=== PATIENT | male | born 1955 | race Caucasian/White ===

== ENCOUNTER 2024-09-27 10:55 | Inpatient (IN) | payer MEDICARE, OTHER, SELFPAY ==
[2024-09-27] VITALS (26 sets, daily range): BP systolic 106–189; BP diastolic 64–115; BMI 24.9
--- NOTE | 2024-09-27 08:50 | ED.GENMED ---
History of Present Illness
General
Chief Complaint: Chest Pain
Source: patient and spouse
Exam Limitations: none
Time Seen by Provider: 09/27/24 08:40
Nursing documentation reviewed up to this point in time: agreed with
History of Present Illness
History of Present Illness:
Late entry seen immediately upon presentation
69-year-old male limited past medical history chest pain about 30 minutes prior to arrival earlier in the morning was doing some heavy lifting pain to pressure across his chest and his left arm not to his jaw or back no nausea or vomiting no leg
edema does not drink or smoke does have a strong family history of heart disease
Past History
Past History
ED Past Surgical History: Appendectomy and Urological
Social History
Tobacco: Non-smoker
Alcohol: None
Drug: None
Personal:
Living: with family
Employment: Employed
Family History
Family History: CAD
Review of Systems
Review of Systems
All Other Systems: Not applicable
Constitutional: Denies fever
EENT: Reports no symptoms
Respiratory: Reports trouble breathing; Denies cough
Cardiac: Reports chest pain; Denies diaphoresis, palpitations or syncope
ABD/GI: Reports no symptoms; Denies nausea or vomiting
: Reports no symptoms
Musculoskeletal: Reports no symptoms
Phy Exam
Physical Exam
Physical Exam:
Physical Exam
General: 69 male mild distress
Neck: No jaundice
Heart: s1/s2 regular rate and rhythm, no murmur. equal radial pulses.
Lungs: no acute respiratory distress. clear bilaterally
Abdomen: Nontender
Neuro: alert and oriented. no focal neurological deficits
Skin: no rash
Psychiatric: well kept. interactive and cooperative
Extremities: no edema.
Scores
Heart Score for Chest Pain Patients
STEMI patient?: No
History: Moderately Suspicious
ECG: Normal
Age: >/= 65 years
Risk Factors: 1 or 2 Risk Factors
Troponin: </= Normal Limit
Heart Score for Chest Pain Patients: 4
Heart Score Risk: 20.3% MACE over next 6 weeks
Course
Orders/Labs/Results
Orders:
Orders
09/27/24 08:33
Amiodarone [Cordarone] 150 mg .ROUTE .STK-MED ONE
Atropine Sulfate [Atropine 0.1 mg/ml Syringe] 2 mg .ROUTE .STK-MED ONE
Calcium CHLORIDE [Calcium Chloride 10% Syringe] 2,000 mg .ROUTE .STK-MED ONE
EPINEPHrine [Adrenalin 1 mg/10 ml] 2 mg .ROUTE .STK-MED ONE
Lidocaine HCl/Pf [Xylocaine] 50 mg .ROUTE .STK-MED ONE
Sodium Bicarbonate 50 meq .ROUTE .STK-MED ONE
09/27/24 08:34
ECG [Electrocardiogram (*1)] Urgent
Reason for Study: Chest Pain
EKG- Treatment ONCE
09/27/24 08:40
Cardiac Monitoring- Treatment ONCE
IV Insert/Care/Rem.- Treatment PRN
O2 Therapy [RESP] Urgent
Titrate/Wean O2 to maintain O2 sat greater than (%): 90
Special Instructions: Maintain sats >/=90%
Pulse Ox/spot Check [RESP] Urgent
Quantity: 1
Special Instructions: ON ROOM AIR
09/27/24 08:47
Aspirin 325 mg PO NOW STA
Nitroglycerin Sublingual [Nitrostat (Sublingual)] 0.4 mg SL [id number] PRN
09/27/24 08:50
Complete Blood Count/With Diff Urgent
Comprehensive Metabolic Panel Urgent
Troponin I Urgent
09/27/24 08:54
EKG [Electrocardiogram (*1)] Stat
Reason for Study: Chest Pain
EKG- Treatment ONCE
09/27/24 08:59
Ondansetron Injectable [Zofran] 4 mg .ROUTE .STK-MED ONE
09/27/24 09:02
PTT Stat
09/27/24 09:15
Aspirin Chewable [Low Strength Aspirin] 324 mg .ROUTE .STK-MED ONE
Heparin 5,000 units .ROUTE .STK-MED ONE
Ticagrelor [Brilinta] 180 mg .ROUTE .STK-MED ONE
09/27/24 09:23
Midazolam HCl [Versed] 2 mg .ROUTE .STK-MED ONE
09/27/24 09:25
Amiodarone [Cordarone] 150 mg Dextrose 5%/Water 100 ml [D5w] 100 ml IV NOW
Midazolam HCl [Versed] 2 mg IV NOW STA
09/27/24 09:26
Heparin 4,000 units IV NOW STA
Ticagrelor [Brilinta] 180 mg PO ONCE ONE
09/27/24 09:30
Amiodarone [Cordarone] 900 mg DEXTROSE 5% PVC-free BAG [D5W PVC-free BAG] 500 ml IV PER PROTOCOL
Initial Dose in mg/min:: 1
Duration of initial dose (hours):: 6
Subsequent dose in mg/min:: 0.5
Duration of subsequent dose (hours):: 18
Maximum dose in mg/min:: 1
Hold and notify provider if:: Heart rate < 60 BPM or SBP < 90 mmHg or MAP < 60 mmHg
09/27/24 09:44
Admit Patient As Directed
Co-Sign Provider:
Level of Care: Inpatient admission
Assign to:: IVU
Physician / Group: HIEN/Riya
Diagnosis: STEMI
Reason for Hospitalization: STEMI, LAD PCI
Expected length of stay greater than two midnights?: Yes
ELOS- Estimated Length of Stay in days: 2
I certify the patient meets the requirements for IP care: Yes
Echo 2D MMode Color/Doppler Urgent
Reason for Study: STEMI
Comment: Riya
Electrocardiogram (*1) Urgent
Reason for Study: Other
Other Reason for Exam: s/p intervention
Comment: dca
Code Status As Directed
Resuscitation Status: Full Code
CARDIAC REHAB CONSULT Routine
Co-Sign Provider:
Type of Cardiac Rehab Referral: Outpatient
Diagnosis: STEMI
Date of Diagnosis/Surgery: 09/27/24
Referring Provider: Anny Martin
Acetaminophen [Tylenol] 650 mg PO Q4HPRN PRN
Morphine Sulfate 2 mg IV Q1HPRN PRN
Activity As Directed
Activity Level: Out of Bed- Chair
Comment: bed/chair rest for 2 hours then out of bed ad tucker
Knitting Supervisor Procedure As Directed
Cardiac Cath Procedure: percutaneous coronary intervention
Intake/ Output As Directed
Frequency: Per unit guidelines
Notify MD As Directed
Notify physician if: immediately for chest pain or bleeding from access site(s)
Radial Artery Hemostasis Method As Directed
Instructions:: 3 mL out at 2 hour posts placement of band
3 mL out at 2 1/2 hours post placement of band
3 mL out at 3 hours post placement of band
Off at 3 1/2 hours post placement of band
If any oozing or hemotoma occurs:: re-inflate band and call provider
Site Checks As Directed
Check access site for bleeding/hematoma: Yes
Comment: on arrival, Q15min x4, Q30min x2, Q1 hr x2, Q2 hr x2, Q4 hr or per
protocol
Vascular Checks As Directed
Location: distal to access site - pulse check
Frequency: Other
Comment: on arrival, Q15min x4, Q30min x2, Q1 hr x2, Q2 hr x2, Q4 hr or per protocol
Vital Signs As Directed
Frequency: Other
Additional Instructions:: on arrival, Q15min x4, Q30min x2, Q1 hr x2, Q2 hr x2, then Q4 hr or per unit
protocol
PRN Pain Medication Management As Directed
May give lesser potent ordered pain med per pt: Yes
preference::
Protocol:: Medication orders for pain may be administered in a
manner that supports deferring to patient preference
when the pt is:
- Requesting an ordered lesser potent pain medication.
Least to most potent pain medications are defined
as: acetaminophen < NSAID < tramadol < opioids
(morphine, oxycodone, hydromorphone).
- Requesting a lesser dose of the same medication IF
ORDERED.
- Requesting a less intrusive route of administration
if both routes are prescribed by the provider (PO <
IV).
DX Deep Vein Thrombosis Video Routine
09/27/24 09:45
0.9% Sodium Chloride 1000 ml [Nss] 1,000 ml IV PER PROTOCOL
Infusion rate in mL/kg/hr:: 1.5
Infusion rate in mL/hr:: 118
Duration of infusion (hours):: 5
09/27/24 09:47
Case Management Consult ONCE
Case Management Consult: Other
Comment: brilinta cost
09/27/24 09:48
Ondansetron Injectable [Zofran] 4 mg IV Q6HPRN PRN
09/27/24 Lunch
Cholesterol Lowering
Cholesterol Lowering: Sodium, 2 Gram
Amiodarone [Cordarone] 900 mg DEXTROSE 5% PVC-free BAG [D5W PVC-free BAG] 500 ml IV PER PROTOCOL
Initial Dose in mg/min:: 1
Duration of initial dose (hours):: 6
Subsequent dose in mg/min:: 0.5
Duration of subsequent dose (hours):: 18
Maximum dose in mg/min:: 1
Hold and notify provider if:: Heart rate < 60 BPM or SBP < 90 mmHg or MAP < 60 mmHg
09/27/24 15:00
Troponin I Q6H
09/27/24 18:00
Atorvastatin [Lipitor] 80 mg PO QPM
09/27/24 20:00
Ticagrelor [Brilinta] 90 mg PO BID
09/27/24 21:00
Troponin I Q6H
09/28/24 03:00
Troponin I Q6H
09/28/24 06:00
Electrocardiogram (*1) IN AM
Reason for Study: Other
Other Reason for Exam: s/p intervention
Comment: dca
Basic Metabolic Panel IN AM
Cardiovascular Evaluation IN AM
Complete Blood Count/No Diff IN AM
09/28/24 08:00
Aspirin Chewable [Low Strength Aspirin] 81 mg PO DAILY
09/28/24 18:00
Enoxaparin Sodium [Lovenox] 40 mg SC QPM
09/29/24 06:00
Electrocardiogram (*1) IN AM
Reason for Study: Other
Other Reason for Exam: s/p intervention
Comment: dca
Basic Metabolic Panel IN AM
Complete Blood Count/No Diff IN AM
Abnormal Lab Results
09/27/24 09/27/24 09/27/24
08:50 09:26 09:40
RBC 4.58 L 10^6/uL
(4.70-6.10)
Abs Immat Gran (auto) 0.1 H 10^3/uL
(0-0.05)
Absolute Neuts (auto) 7.5 H 10^3/uL
(1.4-6.5)
Lymphocytes % 19.6 L %
(20.5-51.1)
BUN 23 H mg/dl
(9-20)
Glucose 106 H mg/dl
(70-99)
POC ACT Low Range 163 H Seconds 207 H Seconds
(116-155) (116-155)
09/27/24 09/27/24
09:48 09:58
RBC
Abs Immat Gran (auto)
Absolute Neuts (auto)
Lymphocytes %
BUN
Glucose
POC ACT Low Range 265 H Seconds 253 H Seconds
(116-155) (116-155)
09/27/24 08:50
09/27/24 08:50
Vital Signs
Initial and Last Documented VS:
Initial Vital Signs
Temp Pulse Resp BP Pulse Ox
98.4 F 76 12 189/106 99
09/27/24 08:45 09/27/24 08:45 09/27/24 08:45 09/27/24 08:45 09/27/24 08:45
Last Documented Vital Signs
Temp Pulse Resp BP Pulse Ox
98.4 F 62 16 126/76 100
09/27/24 08:45 09/27/24 09:14 09/27/24 09:14 09/27/24 09:12 09/27/24 09:14
*Pulse Oximetry
Patient hypoxic: no
*EKG
Interpreted by ED Provider?: Yes
EKG Intrepretation Date: 09/27/24
EKG Intrepretation Time: 08:50
Interpretation: normal
Comparison EKG: no comparison EKG present
Heart Rate: 78
Rate: normal
Rhythm: sinus
[place]: normal axis
Ischemia: no ischemia
*Workers' Compensation Magistrate Interpretation
Rate: normal
Interpretation: normal
Heart Rate: 78
Rhythm: sinus
*Critical Care Note
Total Time (30-74mins, 75-104mins- exclusive of procedures): 32
Update Note
Update Note:
Update called to room patient diaphoretic with chest pain repeat EKG shows ST segment elevation STEMI alert called, interventional bedside patient went into VF immediately defibrillated
Given amiodarone IV calcium IV
ACLS protocol
Taken to Knitting Supervisor by myself
CRITICAL CARE STATEMENT: A total of 32 minutes of critical care time was provided for this patient. This includes management of unstable vital signs, evaluation of the patient at bedside, reviewing the patient's pertinent medical records discussion
with EMS providers and patient's family in addition to discussion with consultants, review of old EKGs and review of pertinent medical records. This time with separate from time utilized to perform the aforementioned documented procedures
ED Attending Note
-
Portions of this chart may have been created with voice recognition software.� Occasional wrong word or��sound alike� substitutions may have occurred due to the inherent limitations of voice recognition software.
Discharge Plan
Departure
Patient Disposition: Admit
Date of Disposition: 09/27/24
Time of Disposition: 09:23
Admit to doctor: riya
Presentation/result/management discussed w/ accepting MD/DO: cardioligy
Patient with high blood pressure during this ER visit?: Yes
Condition: Critical
Covid-19: Not Applicable
Discharge Problem:
Acute non-ST segment elevation myocardial infarction, Ventricular fibrillation
Interventions
Interventions:
*Risk Screen - Suicide Last Done: 09/27/24 08:43
*General Assessment Last Done: 09/27/24 08:43
*Neglect/Abuse Screening Last Done: 09/27/24 08:43
*ED COVID-19 Vaccine History Last Done: 09/27/24 08:43
*Nursing Disposition Last Done: 09/27/24 09:37
ED- Cardiac Assessment Last Done: 09/27/24 08:43
Discharge Date and Time
Discharge Date/Time: 09/27/24 09:38
[2024-09-27] MEDS: ASPIRIN 325 MG PO (08:56)
[2024-09-27 09:01] LABS: % Basophils 0.9 % (0-2); % Eosinophils 2.2 % (0-6); % Immature Granulocytes 0.5 % (0-0.5); % Lymphocytes 19.6 % (20.5-51.1); % Monocytes 6.1 % (1.7-9.3); % Neutrophils 70.7 % (42.2-75.2); Absolute Basophils 0.1 10^3/uL (0-0.2); Absolute Eosinophils 0.2 10^3/uL (0-0.7); Absolute Immature Granulocytes 0.1 10^3/uL (0-0.05); Absolute Lymphocytes 2.1 10^3/uL (1.2-3.4); Absolute Monocytes 0.6 10^3/uL (0.1-0.6); Absolute Neutrophils 7.5 10^3/uL (1.4-6.5); Hematocrit 41.1 % (39.0-52.0); Hemoglobin 14.1 g/dL (13.0-18.0); Mean Corp Hgb Conc. 34.3 g/dL (33.0-37.0); Mean Corpuscular Hgb 30.8 pg (27.0-31.0); Mean Corpuscular Volume 89.7 fL (80.0-94.0); Mean Platelet Volume 10.3 fL (7.4-10.4); Nucleated Red Blood Cells % 0 % (-); Platelet Count 260 10^3/uL (130-400); Red Blood Cell Count 4.58 10^6/uL (4.70-6.10); Red Cell Dist. Width 13.3 % (11.5-14.5); White Blood Cell Count 10.5 10^3/uL (4.8-10.8)
[2024-09-27 09:20] LABS: ALT (SGPT) 29 U/L (0-50); AST (SGOT) 30 U/L (17-59); Albumin 4.5 g/dl (3.5-5.0); Alkaline Phosphatase 64 U/L (38-126); Blood Urea Nitrogen 23 mg/dl (9-20); Calcium 9.5 mg/dl (8.4-10.2); Carbon Dioxide 29 mmol/L (22-30); Chloride 101 mmol/L (98-107); Estimated Creatinine Clearance 91 ml/min; Glucose 106 mg/dl (70-99); Potassium 4.4 mmol/L (3.5-5.1); Sodium 139 mmol/L (135-145); Total Bilirubin 0.5 mg/dl (0.2-1.3); Total Protein 7.3 g/dl (6.3-8.2); eGFR > 60.00
--- NOTE | 2024-09-27 09:23 | EDRN ---
delay in note d/t pt care
@0850 this RN placed 20G IV. right after pt stated he felt warm all over and that CP increased back from a 3 to a 5. MD Sow made aware. asa and nitro obtained and EKG ordered.
@0854 BP rechecked, pt jeffy to 48, EKG obtained and showed STEMI. MD Sow called STEMI alert. MD Murguia aware coming to bedside. nitro held d/t hypotension and bradycardia. asa administered (see mar). pt placed on pads.
@0900 pt medicated with brilinta, heparin, and zofran (see ACS sheet). @ 0903 pt received nitro SL as hypotension and bradycardia resolved ordered by MD Murguia and MD Sow.
@0904 report called to Speech Language Specialist RN, during report @ 0905 pt went into v-fib and subsequently shocked with 200J with return to normal rhythm as ordered by MD Sow .
@0906 pt received 150mg amiodarone bolus. Call placed to pharmacy for amio gtt as ordered by MD Sow
@0907 pt received 2mg versed as ordered by MD Sow
@0908 pt received 1000mg Calcium Chloride IV as ordered by MD Sow
@0910 pt transported to [facility] by 2RN's, ECT, Pharmacist, MD Sow, MD Murguia, and security. verbal update given to [facility] staff. all questions answered.
@0930 This RN left [facility] after verbal report and assisting in pt movement in [facility]. This ends my time of care.
[2024-09-27 09:31] LABS: Troponin I < 0.012 ng/ml
[2024-09-27 09:33] LABS: APTT 25.7 Sec (23.4-35.0)
[2024-09-27 09:34] LABS: ACT-LR - POC 163 Seconds (116-155)
--- NOTE | 2024-09-27 09:35 | HPS.HSE ---
Family Physician
-
PCP: Calvin Mccullough MD
CDY: none prior to admission, seen by Anny Martin MD in ED
Chief Complaint
-
Chest pain
History of Present Illness
69 y/o, no sig PMH, non smoker, non drinker, strong FH premature CAD. New onset chest mid sternal cp/pressure radiating to LUE while doing heavy lifting. brought to ER. Initial EKG NSR without acute changes. He then developed progressive chest
pain with diaphoresis, second EKG with lateral ST segment elevations. While being seen in ED, developed VF and was shocked x1 with return to NSR. Amiodarone 150mg bolus given and gtt started at 1mg/min. Given asprin, brilinta, and heparin and
brought emergently to the slab puller.
Medical History
Past Medical History
Past Medical History: Reports None
Past Surgical History: Reports Appendectomy and Urological
Social History
Unable to obtain full social history at this time due to: Acuity
Tobacco: Non-smoker
Alcohol: None
Drug: None
Personal:
Living: With Family
Family History
Family History: Early CAD (Strong family history premature CAD)
Allergies / Home Medications
Allergies reflects when Allergies were last updated in [facility].
Home Medications with original date entered in [facility]
Allergy/Medication List:
Allergies
Allergy/AdvReac Type Severity Reaction Status Date / Time
Penicillins Allergy Unknown Verified 09/27/24 08:39
Patient takes no meds at home
Review of Systems
-
Unable to obtain full review of systems at this time due to: Acuity
Physical Exam
Vital Signs
Vital Signs
Temp Pulse Resp BP Pulse Ox
98.4 F 55 22 106/84 100
09/27/24 08:45 09/27/24 08:54 09/27/24 08:54 09/27/24 08:54 09/27/24 08:54
Physical Exam
General: Other (Unable to perform PE d/t acuity of ME)
Laboratory Results
-
09/27/24 08:50
09/27/24 08:50
Laboratory Results
Total Bilirubin 0.5 mg/dl (0.2-1.3) 09/27/24 08:50
AST 30 U/L (17-59) 09/27/24 08:50
ALT 29 U/L (0-50) 09/27/24 08:50
Alkaline Phosphatase 64 U/L (38-126) 09/27/24 08:50
Troponin I < 0.012 ng/ml 09/27/24 08:50
Data Reviewed
-
Medical Tests (Nuc Med, Echo, EKG etc): Image Personally Visualized and interpreted
Lab Data: Labs Reviewed by me
Impression/Plan
-
PCP: Calvin Mccullough MD
CDY: none prior to admission, seen by Anny Martin MD in ER
69 y/o, no sig PMH, non smoker, non drinker, strong FH premature CAD. New onset chest mid sternal cp/pressure radiating to LUE while doing heavy lifting. brought to ER. Initial EKG NSR without acute changes. He then developed progressive chest
pain with diaphoresis, second EKG with lateral ST segment elevations. While being seen in ED, developed VF and was shocked x1 with return to NSR. Amiodarone 150mg bolus given and gtt started at 1mg/min. Given asprin, brilinta, and heparin and
brought emergently to the slab puller.
IMPRESSION:
Acute Lateral STEMI
VF arrest w/shock in ED
Strong FH premature CAD
PLAN:
emergent cath
admit IVU post
trend EKGs, Trops to peak
Amiodarone for VF
DAPT w/asa, ticagrelor- CM to check cost
Echo today
Anticipate new start beta selena, acei
Check lipid profile- start high intensity statin therapy with atorvastatin 80mg/d
cardiac rehab consult
followup at [facility] at d/c
[2024-09-27 09:46] LABS: ACT-LR - POC 207 Seconds (116-155)
[2024-09-27 09:53] LABS: ACT-LR - POC 265 Seconds (116-155)
[2024-09-27 10:04] LABS: ACT-LR - POC 253 Seconds (116-155)
--- NOTE | 2024-09-27 10:16 | ITS.CL.CATH ---
Safety Representative - Catheterization
Cardiac Catheterization
Procedure Report:
LEFT HEART CATHETERIZATION AND CORONARY INTERVENTION
Date of Procedure: September 27, 2024
Referring: [place] emergency department
PROCEDURES:
1. Left heart catheterization, coronary angiogram.
2. Ultrasound-guided access.
3. Successful percutaneous coronary artery intervention of 2 tandem 80 to 90% hazy stenoses with one 2.75 x 22 mm Medtronic Atul drug-eluting stent, postdilated using a 2.75 x 20 mm NC balloon at 18 juliette with an excellent angiographic result.
4. Intravascular ultrasound
INDICATION: Vaughn is a 69-year-old gentleman with no known past medical history, on no chronic medications, strong family history of premature coronary artery disease who presents today with sudden onset substernal chest discomfort and diaphoresis
20 to 30 minutes prior to presentation in the emergency room after moving heavy equipment. He went to bed last night without any symptoms. His initial ECG showed normal sinus rhythm without ischemic ST-T wave changes. He then developed worsening
of substernal chest pressure associated with diaphoresis with repeat EKG showing ST elevations in V2 through V6, 1 and aVL concerning for anterolateral ST elevation W[place] for which heart catheterization lab was emergently activated and patient was
brought up to the heart catheterization lab for a coronary angiogram after detailed informed consent. He received 324 mg of aspirin, 180 mg of Brilinta, 5000 units of unfractionated IV heparin in the emergency room along with 1 sublingual
nitroglycerin prior to arrival in the heart catheterization lab. Patient also suffered 1 episode of ventricular fibrillation for which he required shock along with 150 mg of amiodarone, 1 g of calcium gluconate and 2 mg of IV Versed.
ACCESS: Right radial artery, 6 [place] sheath, under ultrasound guidance.
HEMODYNAMICS : (mmHg)
AO (s/d) : 139/80
LV (s/d) : 132/12
LVEDP : 29
Of note, when checking left ventricular pressure, patient went into ventricular fibrillation again and was shocked with 200 J restoring normal sinus rhythm.
CORONARY FINDINGS
DOMINANCE: Right
LEFT MAIN: The left main artery is a large-caliber vessel which gives rise to the left anterior descending artery and the left circumflex artery. There is minimal luminal irregularities.
LEFT ANTERIOR DESCENDING: The left anterior descending artery is a medium to large caliber vessel which gives rise to 1 major medium caliber diagonal branch as it courses to the anterior ventricular groove and wraps around the apex. It is
moderately tortuous. Mid LAD just distal to the takeoff of the diagonal branch has 2 tandem 80 to 90% lesions, which is the culprit of presenting ACS with LYNDSEY II flow into the distal vessel. This was intervened on. Ostial diagonal has eccentric
70% stenosis. Proximal LAD has diffuse 30 to 40% calcified stenosis and is moderately tortuous.
CIRCUMFLEX: The left circumflex artery is a medium caliber vessel which gives rise to 1 major high rising obtuse marginal branch. There is minimal luminal irregularities.
RIGHT CORONARY ARTERY: The right coronary artery is a moderately tortuous large caliber, dominant vessel which gives rise to the right posterior descending artery and the right posterolateral system. There is mild diffuse atherosclerotic plaque.
CORONARY INTERVENTION: The left coronary artery was selectively engaged using a 6 [place] EBU 3.5 guide catheter. Additional heparin was given to maintain a therapeutic ACT throughout the case. A 190 cm 0.014' run-through coronary wire was
successfully advanced with some difficulty across the mid LAD lesions into the distal vessel. The lesions were predilated using a 2.5 x 20 mm semicompliant balloon at 16 juliette with good expansion. The lesions were subsequently stented using a 2.75 x
22 mm Medtronic [place] frontier drug-eluting stent. We brought in a [employer] [place] eye IVUS catheter and despite multiple attempts we could not successfully advance the IVUS catheter beyond the tortuosity in the proximal vessel. IVUS of the proximal
vessel showed diffuse mild to moderate calcified plaque. We postdilated the stent with a 2.75 x 20 mm NC Euphora balloon at 18 juliette with an excellent angiographic result and LYNDSEY-3 flow restored into the distal vessel. Patient tolerated the
procedure well and had 1 out of 10 residual chest pain at the end of the case, significantly improved from presentation. Patient had been loaded with 180 mg of Brilinta in the emergency room. No acute complications.
SEDATION: 32 minutes of procedural sedation was utilized. An independent infertility medical assistant was present to assist with and help manage the patient's level of consciousness and physiologic status.
RADIATION SUMMARY: Fluoro Time (min): 8.2, Dose (mGy): One 161.8, DAP (Gy.cm2) : 61.91
Closure Device: Vascular band over right radial artery, 10 cc of air.
CONCLUSIONS
1. Successful percutaneous coronary artery intervention of 2 tandem 80 to 90% hazy stenoses with one 2.75 x 22 mm Medtronic [place] drug-eluting stent, postdilated using a 2.75 x 20 mm NC balloon at 18 juliette with an excellent angiographic result.
2. Elevated LVEDP at 29 mmHg.
RECOMMENDATIONS
1. Uninterrupted dual antiplatelet therapy with daily baby aspirin and Brilinta 90 mg twice daily along with high intensity statin and beta-selena as tolerated once hemodynamically stable.
2. Full echocardiogram to assess biventricular function and rule out any significant valvular abnormalities.
3. Wean radial band per protocol.
4. Aggressive management of cardiovascular risk factors.
5. Eventual referral for outpatient cardiac rehab.
Anny Martin MD, FAC, [facility]
[2024-09-27] MEDS: VERSED 2 MG IV (11:23)
[2024-09-27] MEDS: BRILINTA 180 MG PO (11:24)
[2024-09-27] MEDS: NSS 1000 IV (11:31)
[2024-09-27] MEDS: HEPARIN 4000 UNITS IV (11:32)
--- NOTE | 2024-09-27 12:28 | CM ---
CM following for DC planning needs.
Met w/ patient + spouse at bedside to complete initial assessment.
Pt. resides in a private, multi level home w/ spouse.
Functionally, patient is quite indep. at baseline w/ ADLs, mobility without the use of any assisted device.
Pt. has RX plan thru [facility] and uses [facility] for RX needs.
Antic. DC plan is for home without needs.
Will follow.
--- NOTE | 2024-09-27 12:30 | CM ---
Pawan Rosales [facility], .
Cost of first fill is $434.29. Once annual deductible of $590 is met, cost will be estimated at $371/month.
I can provide a free 30 d coupon but pt. would not qualify for additional coupons.
TT to [facility] to update.
Will notify patient.
[2024-09-27] MEDS: COZAAR 25 MG PO (13:23)
[2024-09-27] MEDS: LIPITOR 80 MG PO (18:11)
--- NOTE | 2024-09-27 20:00 | PTCARENOTE ---
assumed care of pt. walking rounds done. pt in bed, AAOx4. pt denies any pain. VSS. NSR on monitor, HR 70s. B/L radial and DP pulses palpable. heart tones clear. right radial dressing CDI, no hematoma noted. B/L breath sounds present. POX 96% on
room air. bowel sounds audible. pt voids without difficulty. PIV x2 intact and patent. see worklist for full assessment, VS, and interventions. pt resting comfortably.
[2024-09-27] MEDS: BRILINTA 90 MG PO (20:07)
[2024-09-28] VITALS (8 sets, daily range): BP systolic 93–136; BP diastolic 65–85
--- NOTE | 2024-09-28 04:00 | PTCARENOTE ---
pt VSS, no acute changes in assessment. SR 60s-70s. POX 96-98% on room air. right radial site CDI. AM labs drawn and sent. EKG done. pt resting between care.
[2024-09-28 04:15] LABS: Hematocrit 42.5 % (39.0-52.0); Hemoglobin 14.6 g/dL (13.0-18.0); Mean Corp Hgb Conc. 34.4 g/dL (33.0-37.0); Mean Corpuscular Hgb 30.6 pg (27.0-31.0); Mean Corpuscular Volume 89.1 fL (80.0-94.0); Mean Platelet Volume 10.8 fL (7.4-10.4); Platelet Count 242 10^3/uL (130-400); Red Blood Cell Count 4.77 10^6/uL (4.70-6.10); Red Cell Dist. Width 13.1 % (11.5-14.5); White Blood Cell Count 12.1 10^3/uL (4.8-10.8)
[2024-09-28 04:39] LABS: Blood Urea Nitrogen 18 mg/dl (9-20); Calcium 9.2 mg/dl (8.4-10.2); Carbon Dioxide 25 mmol/L (22-30); Chloride 103 mmol/L (98-107); Estimated Creatinine Clearance 91 ml/min; Glucose 113 mg/dl (70-99); HDL Cholesterol 57 mg/dl; LDL Cholesterol, Calculated 150 mg/dl; Potassium 4.3 mmol/L (3.5-5.1); Sodium 139 mmol/L (135-145); Total Cholesterol 227 mg/dl (50-199); Triglyceride 101 mg/dl (10-149); Very Low Density Lipoprotein 20 mg/dl (0-30); eGFR > 60.00
[2024-09-28] MEDS: BRILINTA 90 MG PO ×2 (07:45→20:56)
[2024-09-28] MEDS: COZAAR 25 MG PO (07:45)
[2024-09-28] MEDS: LOW STRENGTH ASPIRIN 81 MG PO (07:46)
--- NOTE | 2024-09-28 07:57 | PTCARENOTE ---
Rec'd Pt A,A+Ox3, Denies pain. R Radial dsg D+I, + radial pulse, slightly ecchymotic.
--- NOTE | 2024-09-28 08:51 | W.PN.CARDCBS ---
Addendum entered and electronically signed by Anny Martin MD 09/28/24 12:02:
I saw and examined the patient.
The Blueprinting And Photocopy Supervisor's note was reviewed and I agree with the note.
Comment: Patient is doing well this morning and does not offer any significant complaints. Specifically no chest discomfort or shortness of breath. He has been out of bed ambulating without any limiting symptoms.
Vital signs and lab work reviewed. On exam patient is well-appearing, in no acute distress, awake, alert and oriented x 3, regular rate, normal S1 and S2, no murmurs, rubs or gallops, no JVD, lungs are clear to auscultation bilaterally, abdomen is
soft, nontender, nondistended with active bowel sounds, warm extremities without significant edema, right radial access site appears well without evidence of hematoma or bruit.
EKG this morning in normal sinus rhythm with interpolated PVC, no acute ischemic changes
Echocardiogram reviewed: Moderate LV dysfunction with wall motion abnormalities in the LAD territory, estimated LVEF of about 35 to 40%
Telemetry: Frequent PVCs/short runs of NSVT
Recommendations:
1. Uninterrupted dual antiplatelet therapy with daily baby aspirin and Brilinta, high intensity statin. Agree with initiation of beta-selena today with slow up titration as tolerated. Given Brilinta will be cost prohibitive plan will be after
the 30-day coupon to switch him to Plavix as an outpatient at follow-up.
2. Close monitoring of telemetry. 2 episodes of VF upon presentation prior to intervention in the setting of acute ST elevation [place]. Patient transiently was on amiodarone, discontinued since yesterday.
3. Goal-directed medical therapy for ischemic cardiomyopathy: For now continue losartan 25 mg daily with addition of Toprol-XL. Depending on heart rate/blood pressure tomorrow consider adding Aldactone. Will at least check into cost for SGLT2
inhibitor.
4. Aggressive management of cardiovascular risk factors. Goal LDL less than 55.
5. Referral for outpatient cardiac rehab.
Anny Martin MD, [facility], [facility]
Original Note:
Today's Communication / Plan
-
continue post WA care
Impression / Plan
-
PCP: Calvin Mccullough MD
CDY: none prior to admission, seen by Anny Martin MD in ER
69 y/o, no sig PMH, non smoker, non drinker, strong FH premature CAD. New onset chest mid sternal cp/pressure radiating to LUE while doing heavy lifting. brought to ER. Initial EKG NSR without acute changes. He then developed progressive chest
pain with diaphoresis, second EKG with lateral ST segment elevations. While being seen in ED, developed VF and was shocked x1 with return to NSR. Amiodarone 150mg bolus given and gtt started at 1mg/min. Given asprin, brilinta, and heparin and
brought emergently to the lab coordinator.
IMPRESSION:
Acute Lateral STEMI
VF arrest w/shock in ED
Strong FH premature CAD
Hyperlipidemia
PLAN:
Post PCI mid LAD x 1 RADHA, VF shock intraprocedurally
Rad site stable mild ecchymosis
tele SR with PVCs, NSVT 2-3b
trend troponin to peak 11.9 this am
ECHO - EF 35-40%, Apical AK, anterior HK
Amiodarone stopped
DAPT w/asa, ticagrelor for 1 month, with free coupon, then switch to Plavix at office visit
new start to beta selena, and ARB today, trend BP's
LDL 150- start high intensity statin therapy with atorvastatin 80mg/d
cardiac rehab consult
followup at [facility] at d/c
continue to monitor on tele another 24 hours
CONCLUSIONS
1. Successful percutaneous coronary artery intervention of 2 tandem 80 to 90% hazy stenoses with one 2.75 x 22 mm Medtronic Atul drug-eluting stent, postdilated using a 2.75 x 20 mm NC balloon at 18 juliette with an excellent angiographic result.
2. Elevated LVEDP at 29 mmHg.
Progress Note - Switchboard Troubleshooter
Subjective
Date of Service: September 28, 2024
feels great, no cp, sob
Objective
Labs:
09/28/24 03:45
09/28/24 03:45
Labs
Hgb 14.6 g/dL (13.0-18.0) 09/28/24 03:45
Hct 42.5 % (39.0-52.0) 09/28/24 03:45
Plt Count 242 10^3/uL (130-400) 09/28/24 03:45
APTT 25.7 Sec (23.4-35.0) 09/27/24 09:02
Sodium 139 mmol/L (135-145) 09/28/24 03:45
Potassium 4.3 mmol/L (3.5-5.1) 09/28/24 03:45
BUN 18 mg/dl (9-20) 09/28/24 03:45
Creatinine 0.8 mg/dL (0.7-1.3) 09/28/24 03:45
Glucose 113 mg/dl (70-99) H 09/28/24 03:45
Troponins
09/27/24 09/27/24 09/27/24
08:50 15:48 22:18
Troponin I < 0.012 2.530 H* D 10.000 H* D
09/28/24
03:45
Troponin I 11.900 H*
Vital Signs and I&O:
Vital Signs
Temp Pulse Resp BP Pulse Ox
98.4 F 71 20 136/85 98
09/28/24 08:14 09/28/24 03:53 09/28/24 08:14 09/28/24 03:53 09/28/24 08:14
Vital Signs
Temp Pulse Resp BP Pulse Ox
98.4 F 71 20 136/85 98
09/28/24 08:14 09/28/24 03:53 09/28/24 08:14 09/28/24 03:53 09/28/24 08:14
Intake & Output
09/26/24 09/27/24 09/28/24 09/29/24
06:59 06:59 06:59 06:59
Intake Total 600 / 600
Output Total 750 / 750
Balance -150 / -150
Physical Exam
Physical Exam
NAD< AOX3
S1, S2, RRR
CTAB, non labored
SNTND bsx4
R rad site c/d/i, mild ecchymosis, good pulse
[2024-09-28] MEDS: TOPROL XL 25 MG PO (09:54)
--- NOTE | 2024-09-28 11:48 | CM ---
Addendum entered by SANDRA Issa 09/28/24 11:53:
Recd consult for Advanced Directive. Offered this to patient but he reports that he has an Advanced Directive and declined any add'l resources.
Original Note:
CM continues to follow for DC planning needs.
Met w/ patient, spouse at bedside.
Pt. anticipating DC tomorrow.
Will continue to follow for DC planning needs.
Antic. home, no needs.
--- NOTE | 2024-09-28 13:23 | CM ---
Priced the following medications at request of Cardiology:
Farxiga-not covered
Jardiance- $871.84/90 d supply; $587.89/30 d supply TT to [facility] to update.
[2024-09-28] MEDS: LIPITOR 80 MG PO (18:35)
[2024-09-28] MEDS: LOVENOX 40 MG SC (18:35)
[2024-09-29 03:25] VITALS: BP 103/75
[2024-09-29 04:07] LABS: Hematocrit 42.5 % (39.0-52.0); Hemoglobin 14.6 g/dL (13.0-18.0); Mean Corp Hgb Conc. 34.4 g/dL (33.0-37.0); Mean Corpuscular Hgb 30.7 pg (27.0-31.0); Mean Corpuscular Volume 89.3 fL (80.0-94.0); Mean Platelet Volume 10.8 fL (7.4-10.4); Platelet Count 224 10^3/uL (130-400); Red Blood Cell Count 4.76 10^6/uL (4.70-6.10); Red Cell Dist. Width 13.1 % (11.5-14.5); White Blood Cell Count 9.1 10^3/uL (4.8-10.8)
[2024-09-29 04:33] LABS: Blood Urea Nitrogen 25 mg/dl (9-20); Carbon Dioxide 25 mmol/L (22-30); Chloride 104 mmol/L (98-107); Estimated Creatinine Clearance 81 ml/min; Glucose 100 mg/dl (70-99); Potassium 4.3 mmol/L (3.5-5.1); Sodium 140 mmol/L (135-145); eGFR > 60.00
--- NOTE | 2024-09-29 04:47 | PTCARENOTE ---
Pt NSR to SB as low as 45BPM. Denies any pain or SOB. Pt self in the room.
[2024-09-29 07:01] VITALS: BP 93/81
--- NOTE | 2024-09-29 09:05 | W.PN.CARDCBS ---
Addendum entered and electronically signed by Rogelio Yang MD 09/29/24 13:53:
Attending addendum: Patient seen and examined. TALENT DEVELOPMENT DIRECTOR note reviewed. Patient is stable for discharge. Follow-up has been arranged in our office. Will treat with ticagrelor x 1 month then likely switch to clopidogrel. Patient has been ambulatory in
the hallways and in his room and feels well. He understands that he should return to the emergency room for evaluation should recurring symptoms occur.
Original Note:
Today's Communication / Plan
-
stable for d/c home
Impression / Plan
-
PCP: Calvin Mccullough MD
CDY: none prior to admission, seen by Anny Martin MD in ER
69 y/o, no sig PMH, non smoker, non drinker, strong FH premature CAD. New onset chest mid sternal cp/pressure radiating to LUE while doing heavy lifting. brought to ER. Initial EKG NSR without acute changes. He then developed progressive chest
pain with diaphoresis, second EKG with lateral ST segment elevations. While being seen in ED, developed VF and was shocked x1 with return to NSR. Amiodarone 150mg bolus given and gtt started at 1mg/min. Given asprin, brilinta, and heparin and
brought emergently to the laboratory technology teacher.
IMPRESSION:
Acute Lateral STEMI
VF arrest w/shock in ED
Strong FH premature CAD
Hyperlipidemia
PLAN:
Post PCI mid LAD x 1 RADHA, VF shock intraprocedurally
Rad site stable mild ecchymosis
tele SR/SB no further ectopy, HR low 40's while sleeping
troponin peaked at 11.9
ECHO - EF 35-40%, Apical AK, anterior HK
Amiodarone stopped
DAPT w/asa, ticagrelor for 1 month, with free coupon, then switch to Plavix at office visit
BP 90's but denies LH/dizziness, will continue losartan 25 and toprol 25
recommended he obtain a bp cuff to monitor at home
LDL 150- start high intensity statin therapy with atorvastatin 80mg/d
cardiac rehab consult
followup at [facility] at d/c
stable for d/c home
CONCLUSIONS
1. Successful percutaneous coronary artery intervention of 2 tandem 80 to 90% hazy stenoses with one 2.75 x 22 mm Medtronic [place]om drug-eluting stent, postdilated using a 2.75 x 20 mm NC balloon at 18 juliette with an excellent angiographic result.
2. Elevated LVEDP at 29 mmHg.
Progress Note - Telephone Supervisor
Subjective
Date of Service: September 29, 2024
denies cp, sob
Objective
Labs:
09/29/24 03:32
09/29/24 03:32
Labs
Hgb 14.6 g/dL (13.0-18.0) 09/29/24 03:32
Hct 42.5 % (39.0-52.0) 09/29/24 03:32
Plt Count 224 10^3/uL (130-400) 09/29/24 03:32
APTT 25.7 Sec (23.4-35.0) 09/27/24 09:02
Sodium 140 mmol/L (135-145) 09/29/24 03:32
Potassium 4.3 mmol/L (3.5-5.1) 09/29/24 03:32
BUN 25 mg/dl (9-20) H 09/29/24 03:32
Creatinine 0.9 mg/dL (0.7-1.3) 09/29/24 03:32
Glucose 100 mg/dl (70-99) H 09/29/24 03:32
Troponins
09/27/24 09/27/24 09/27/24
08:50 15:48 22:18
Troponin I < 0.012 2.530 H* D 10.000 H* D
09/28/24 09/28/24
03:45 12:09
Troponin I 11.900 H* 8.070 H*
Vital Signs and I&O:
Vital Signs
Temp Pulse Resp BP Pulse Ox
98.4 F 66 18 81 98
09/29/24 07:04 09/29/24 07:01 09/29/24 07:04 09/29/24 07:01 09/29/24 07:04
Vital Signs
Temp Pulse Resp BP Pulse Ox
98.4 F 66 18 81 98
09/29/24 07:04 09/29/24 07:01 09/29/24 07:04 09/29/24 07:01 09/29/24 07:04
Intake & Output
09/27/24 09/28/24 09/29/24 09/30/24
06:59 06:59 06:59 06:59
Intake Total 600 / 600 200 / 200
Output Total 750 / 750
Balance -150 / -150 200 / 200
Physical Exam
Physical Exam
NAD, AOX3
S1, S2, RRR
CTAB, non labored, no wheeze
SNTND bsx4
R rad site with mild ecchymosis, good pulse
[2024-09-29] MEDS: LOW STRENGTH ASPIRIN 81 MG PO (09:09)
[2024-09-29] MEDS: COZAAR 25 MG PO (09:09)
[2024-09-29] MEDS: BRILINTA 90 MG PO (09:09)
[2024-09-29] MEDS: TOPROL XL 25 MG PO (09:09)
[2024-09-29 11:28] VITALS: BP 118/72
--- NOTE | 2024-09-29 12:10 | CM ---
CM following for DC planning needs.
Met with patient, spouse at bedside.
Pt. is hopeful for DC to home today. He offers no concerns or needs at this time.
Plan is for home, no needs.
--- NOTE | 2024-09-29 12:29 | PTCARENOTE ---
Assumed care of pt from prev nsg shift; Pt AAOx3 w/no c/o CP or SOB; Pt w/VSS w/HR in the 70' & BP 93/81 this AM. Pt is SB w/prol QT on telemetry monitoring. 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 Pt awaiting D/C. Pt
w/call carrero within reach, plan of care ongoing.
[2024-09-29 14:37] VITALS: BP 106/70
[2024-09-29 14:38] VITALS: BP 106/70
--- NOTE | 2024-09-29 14:47 | W.DS.TRANS ---
DC Summary - Industrial Relations Worker
-
Discharge Instructions:
Discharge Diagnosis/Procedures STEMI, s/p angioplasty and stent to Left
Anterior Descending artery
Diet Low Cholesterol,2 Gram Sodium
Activity No strenuous activity
Additional Activity For 2 weeks, NO snow shoveling
Driving Restrictions No driving for 24 hours
Other Services Cardiac Rehab
Specialty Instructions Weigh Daily
Instructions:
Stand-Alone Forms: DC Instructions- Cath/EP Lab
Changes to Home Medications: No
Discharge Medications:
DC Medications w/original date entered in [facility] ([employer])
aspirin 81 mg chewable tablet 81 mg PO DAILY #1 tab 09/29/24
atorvastatin 80 mg tablet 80 mg PO QPM #90 tabs 09/29/24
losartan 25 mg tablet 25 mg PO DAILY #90 tabs 09/29/24
metoprolol succinate 25 mg tablet,extended release 24 hr 25 mg PO DAILY #90 tabs 09/29/24
ticagrelor 90 mg tablet (Brilinta) 90 mg PO BID #60 tabs 09/29/24
Home Medication Changes
All new meds
Pending Results: No
--- NOTE | 2024-09-29 15:44 | PTCARENOTE ---
Pt's (2) IV lines D/C'd & telemetry pack removed. D/C instructions discussed w/pt & spouse. Pt left w/personal belongings incl cell phone & building services technician. Pt escorted out via wheelchair by staff w/spouse driving him home.
== END 2024-09-29 15:45 | disposition home or self-care (01) | DRG 321 ==
LOC: IVU 10:55
PROVIDERS: Nurse Practitioner; Nurse Practitioner Adult Health; ADMITTING PHYSICIAN Internal Medicine Interventional Cardiology; EMERGENCY PHYSICIAN Emergency Medicine; FAMILY PHYSICIAN Family Medicine
PROC: B240ZZ3 Ultrasonography of Single Coronary Artery, Intravascular (ICD-10-PCS; 2024-09-27)
PROC: 5A2204Z Restoration of Cardiac Rhythm, Single (ICD-10-PCS; 2024-09-27)
PROC: B2111ZZ Fluoroscopy of Multiple Coronary Arteries using Low Osmolar Contrast (ICD-10-PCS; 2024-09-27)
PROC: 027034Z Dilation of Coronary Artery, One Artery with Drug-eluting Intraluminal Device, Percutaneous Approach (ICD-10-PCS; 2024-09-27)
PROC: 4A023N7 Measurement of Cardiac Sampling and Pressure, Left Heart, Percutaneous Approach (ICD-10-PCS; 2024-09-27)
DX: I21.02 ST elevation (STEMI) myocardial infarction involving left anterior descending coronary artery (principal); I46.2 Cardiac arrest due to underlying cardiac condition; I49.01 Ventricular fibrillation; R57.9 Shock, unspecified; I25.5 Ischemic cardiomyopathy; E78.5 Hyperlipidemia, unspecified; I49.3 Ventricular premature depolarization; X50.0XXA Overexertion from strenuous movement or load, initial encounter; Y93.89 Activity, other specified; Y92.9 Unspecified place or not applicable; Z82.49 Family history of ischemic heart disease and other diseases of the circulatory system; Z88.0 Allergy status to penicillin; Z90.49 Acquired absence of other specified parts of digestive tract
CPT/HCPCS: 80048; 80053; 80061; 84484; 85025; 85027; 85347; 85730; 92960; 93005; 93306; 93458; 96374; 96375; 99152; 99153; 99291; C1725; C1753; C1874; C1894; C9606; Q9967